=== PATIENT | male | born 1955 | race Two or more races ===

== ENCOUNTER → 2025-02-22 | Outpatient (CLI) | payer OTHER, MEDICAID, SELFPAY ==
--- NOTE | 2025-02-22 13:30 | XR_ITS ---
Examination: Abdomen sonogram, Limited Date and time of exam: February 22, 2025 1435 hours INDICATIONS: Bilateral inguinal hernia pain Technique: Real-time garcia scale transabdominal sonographic images of the upper abdomen obtained. Findings: Right inguinal hernia 5.6 x 2.7 x 6.2 cm 2 left inguinal hernia is 5.7 x 3.2 cm, 6.2 x 2.5 cm IMPRESSION: Inguinal hernias as above
== END | disposition home or self-care (01) ==
PROVIDERS: PCP Physician Assistant Medical; Referring Provider Physician Assistant Medical; Visit Provider Physician Assistant Medical
DX: K40.90 Unilateral inguinal hernia, without obstruction or gangrene, not specified as recurrent (principal)
CPT/HCPCS: 76705